=== PATIENT | female | born 2000 | race Caucasian/White ===

== ENCOUNTER 2023-02-16 18:44 | Emergency (ER) | payer OTHER ==
[~2023-02-16] VITALS: Ht 157.5 cm; Wt 54.0 kg
[2023-02-16 19:19] VITALS: BP 117/83; PULSE 69; RESP 18; TEMP 97.1; O2SAT 100
[2023-02-16 19:30] VITALS: O2SAT 100
[2023-02-16] MEDS ORDERED: KETOROLAC 60 MG/2 ML VIAL IM ONE (20:45)
[2023-02-16] MEDS ORDERED: ONDANSETRON 4 MG ODT PO ONE (20:45)
[2023-02-16] MEDS ORDERED: IBUP-2213 PO (21:42)
[2023-02-16] MEDS ORDERED: ONDA8TAB87 PO (21:42)
== END 2023-02-16 21:44 | disposition home or self-care (01) ==
LOC: MED 18:44
DX: R51.9 Headache, unspecified (principal); R11.0 Nausea
CPT/HCPCS: 81002; 81025; 96372; 99283; J1885; Q0162